=== PATIENT | female | born 1980 | race Two or more races ===

== ENCOUNTER 2016-10-24 19:21 | Emergency (ER) | payer MEDICAID ==
[~2016-10-24] VITALS: Ht 167.6 cm; Wt 71.7 kg
[2016-10-24 22:43] VITALS: BP 108/68
[2016-10-24] MEDS ORDERED: ACETAMINOPHEN 325 MG TAB PO ONE ×2 (23:19→23:30)
[2016-10-24] MEDS ORDERED: IBUPROFEN 600 MG TAB PO ONE (23:30)
== END 2016-10-24 23:35 | disposition home or self-care (01) ==
LOC: ER 19:27
DX: S20.229A Contusion of unspecified back wall of thorax, initial encounter (principal); R51 Headache; W19.XXXA Unspecified fall, initial encounter; Y93.89 Activity, other specified; Y99.8 Other external cause status; Y92.89 Other specified places as the place of occurrence of the external cause
CPT/HCPCS: 70450